=== PATIENT | female | born 1955 | race Caucasian/White ===

== ENCOUNTER → 2023-12-25 10:59 | Outpatient (REF) | payer MEDICARE, OTHER, SELFPAY | LOC: RAD 10:59 | PROVIDERS: ATTENDING PHYSICIAN Physician Assistant | DX: M25.551 Pain in right hip (principal); M79.651 Pain in right thigh | CPT/HCPCS: 73502 ==

== ENCOUNTER → 2023-12-30 14:53 | Outpatient (REF) | payer MEDICARE, OTHER, SELFPAY | LOC: HWWDC 14:53 | PROVIDERS: ATTENDING PHYSICIAN Family Medicine | DX: Z12.31 Encounter for screening mammogram for malignant neoplasm of breast (principal) | CPT/HCPCS: 77063; 77067 ==

== ENCOUNTER → 2024-09-06 10:04 | Outpatient (REF) | payer MEDICARE, OTHER, SELFPAY ==
[2024-09-06 12:01] LABS: % Basophils 1.1 % (0-2); % Eosinophils 4.2 % (0-6); % Immature Granulocytes 0.6 % (0-0.5); % Lymphocytes 36.1 % (20.5-51.1); % Monocytes 10.5 % (1.7-9.3); % Neutrophils 47.5 % (42.2-75.2); Absolute Basophils 0.1 10^3/uL (0-0.2); Absolute Eosinophils 0.2 10^3/uL (0-0.7); Absolute Lymphocytes 1.9 10^3/uL (1.2-3.4); Absolute Monocytes 0.6 10^3/uL (0.1-0.6); Absolute Neutrophils 2.5 10^3/uL (1.4-6.5); Hematocrit 39.5 % (37.0-47.0); Hemoglobin 12.8 g/dL (12.0-16.0); Mean Corp Hgb Conc. 32.4 g/dL (33.0-37.0); Mean Corpuscular Hgb 30.3 pg (27.0-31.0); Mean Corpuscular Volume 93.4 fL (81.0-99.0); Mean Platelet Volume 9.8 fL (7.4-10.4); Nucleated Red Blood Cells % 0 %; Platelet Count 232 10^3/uL (130-400); Red Blood Cell Count 4.23 10^6/uL (4.20-5.40); Red Cell Dist. Width 12.3 % (11.5-14.5); White Blood Cell Count 5.3 10^3/uL (4.8-10.8)
[2024-09-06 12:07] LABS: C-Reactive Protein < 5.00 mg/L (0.0-10.00)
[2024-09-06 12:28] LABS: Erythrocyte Sed Rate 20 mm/hour (0-20)
[2024-09-06 15:40] LABS: Lyme Antibody Screen, EIA Negative (Negative)
== END ==
LOC: HWLAB 10:04
PROVIDERS: ATTENDING PHYSICIAN Physician Assistant
DX: M25.511 Pain in right shoulder (principal); M25.512 Pain in left shoulder
CPT/HCPCS: 36415; 85025; 85652; 86140; 86618

== ENCOUNTER → 2024-10-04 09:26 | Outpatient (REF) | payer MEDICARE, OTHER, SELFPAY ==
[2024-10-04 12:28] LABS: % Basophils 0.5 % (0-2); % Eosinophils 2.6 % (0-6); % Immature Granulocytes 0.3 % (0-0.5); % Monocytes 10.3 % (1.7-9.3); % Neutrophils 60.3 % (42.2-75.2); Absolute Eosinophils 0.2 10^3/uL (0-0.7); Absolute Lymphocytes 1.5 10^3/uL (1.2-3.4); Absolute Monocytes 0.6 10^3/uL (0.1-0.6); Absolute Neutrophils 3.5 10^3/uL (1.4-6.5); Hematocrit 37.9 % (37.0-47.0); Hemoglobin 12.5 g/dL (12.0-16.0); Mean Corpuscular Hgb 30.5 pg (27.0-31.0); Mean Corpuscular Volume 92.4 fL (81.0-99.0); Mean Platelet Volume 9.8 fL (7.4-10.4); Nucleated Red Blood Cells % 0 %; Platelet Count 191 10^3/uL (130-400); Red Cell Dist. Width 12.6 % (11.5-14.5); White Blood Cell Count 5.9 10^3/uL (4.8-10.8)
[2024-10-04 12:42] LABS: ALT (SGPT) 16 U/L (0-35); AST (SGOT) 26 U/L (14-36); Albumin 4.4 g/dl (3.5-5.0); Alkaline Phosphatase 79 U/L (38-126); Blood Urea Nitrogen 13 mg/dl (7-17); Calcium 9.2 mg/dl (8.4-10.2); Carbon Dioxide 27 mmol/L (22-30); Chloride 100 mmol/L (98-107); Glucose 86 mg/dl (70-99); HDL Cholesterol 103 mg/dl; LDL Cholesterol, Calculated 137 mg/dl; Potassium 4.2 mmol/L (3.5-5.1); Sodium 133 mmol/L (135-145); Total Bilirubin 0.5 mg/dl (0.2-1.3); Total Cholesterol 257 mg/dl (50-199); Triglyceride 89 mg/dl (10-149); Very Low Density Lipoprotein 17 mg/dl (0-30); eGFR > 60.00
[2024-10-04 13:05] LABS: TSH Reflex To Free T4 0.63 uIU/ml (0.47-4.68)
== END ==
LOC: HWLAB 09:26
PROVIDERS: ATTENDING PHYSICIAN Family Medicine
DX: E78.00 Pure hypercholesterolemia, unspecified (principal); E03.9 Hypothyroidism, unspecified; D72.819 Decreased white blood cell count, unspecified; R53.83 Other fatigue; R55 Syncope and collapse
CPT/HCPCS: 36415; 80053; 80061; 84443; 85025

== ENCOUNTER → 2025-01-26 10:01 | Outpatient (REF) | payer OTHER, SELFPAY ==
[2025-01-26 16:05] LABS: Blood Urea Nitrogen 9 mg/dl (7-17); Calcium 9.6 mg/dl (8.4-10.2); Carbon Dioxide 25 mmol/L (22-30); Chloride 104 mmol/L (98-107); Glucose 88 mg/dl (70-99); Potassium 4.2 mmol/L (3.5-5.1); Sodium 138 mmol/L (135-145); eGFR > 60.00
== END ==
LOC: HWRAD 10:01
PROVIDERS: ATTENDING PHYSICIAN Family Medicine
DX: M85.89 Other specified disorders of bone density and structure, multiple sites (principal); Z12.31 Encounter for screening mammogram for malignant neoplasm of breast; E87.1 Hypo-osmolality and hyponatremia
CPT/HCPCS: 36415; 77063; 77067; 77080; 80048

== ENCOUNTER → 2025-03-14 11:03 | Outpatient (REF) | payer OTHER, SELFPAY ==
[2025-03-14 12:09] LABS: % Basophils 0.7 % (0-2); % Eosinophils 2.4 % (0-6); % Immature Granulocytes 0.2 % (0-0.5); % Monocytes 9.5 % (1.7-9.3); % Neutrophils 61.2 % (42.2-75.2); Absolute Eosinophils 0.1 10^3/uL (0-0.7); Absolute Lymphocytes 1.5 10^3/uL (1.2-3.4); Absolute Monocytes 0.6 10^3/uL (0.1-0.6); Absolute Neutrophils 3.6 10^3/uL (1.4-6.5); Hematocrit 39.5 % (37.0-47.0); Hemoglobin 13.1 g/dL (12.0-16.0); Mean Corp Hgb Conc. 33.2 g/dL (33.0-37.0); Mean Corpuscular Hgb 30.1 pg (27.0-31.0); Mean Corpuscular Volume 90.8 fL (81.0-99.0); Mean Platelet Volume 9.5 fL (7.4-10.4); Nucleated Red Blood Cells % 0 %; Platelet Count 248 10^3/uL (130-400); Red Blood Cell Count 4.35 10^6/uL (4.20-5.40); Red Cell Dist. Width 12.3 % (11.5-14.5); White Blood Cell Count 5.8 10^3/uL (4.8-10.8)
[2025-03-14 14:09] LABS: Blood Urea Nitrogen 13 mg/dl (7-17); Calcium 9.4 mg/dl (8.4-10.2); Carbon Dioxide 24 mmol/L (22-30); Chloride 106 mmol/L (98-107); Glucose 123 mg/dl (70-99); Potassium 4.4 mmol/L (3.5-5.1); Sodium 140 mmol/L (135-145); eGFR > 60.00
== END ==
LOC: RCS 11:03
PROVIDERS: ATTENDING PHYSICIAN Orthopaedic Surgery Hand Surgery; FAMILY PHYSICIAN Family Medicine
DX: Z01.818 Encounter for other preprocedural examination (principal)
CPT/HCPCS: 36415; 80048; 85025; 93005

== ENCOUNTER 2025-09-29 06:29 | Day surgery (SDC) | payer OTHER, SELFPAY | END 2025-09-29 16:21 | disposition home or self-care (01) | LOC: GI 06:29 | PROVIDERS: ATTENDING PHYSICIAN Internal Medicine | DX: K52.9 Noninfective gastroenteritis and colitis, unspecified (principal); R63.4 Abnormal weight loss; R10.13 Epigastric pain; K44.9 Diaphragmatic hernia without obstruction or gangrene; K22.89 Other specified disease of esophagus; K29.70 Gastritis, unspecified, without bleeding | CPT/HCPCS: 45380; 43239; 88305; 88342 ==